=== PATIENT | male | born 1980 | race Two or more races ===

== ENCOUNTER 2024-06-09 16:19 | Emergency (ER) | payer OTHER ==
[~2024-06-09] VITALS: Ht 165.1 cm; Wt 83.9 kg
[2024-06-09] MEDS ORDERED: GLUMETZA500 MG (16:56)
[2024-06-09] MEDS ORDERED: OxyCODONE HCL/APAP UD (PERCOCET) PO ONE (17:00)
[2024-06-09] MEDS ORDERED: DICLOFENAC SODI50 MG PO (18:43)
[2024-06-09] MEDS ORDERED: KETOROLAC TROMETHAMINE 60 MG VIAL IM ONE (19:00)
== END 2024-06-09 19:16 ==
LOC: ER 16:19
DX: S50.01XA Contusion of right elbow, initial encounter (principal); I10 Essential (primary) hypertension; W01.0XXA Fall on same level from slipping, tripping and stumbling without subsequent striking against object, initial encounter; Y93.02 Activity, running; Y92.59 Other trade areas as the place of occurrence of the external cause; E11.9 Type 2 diabetes mellitus without complications; Z79.84 Long term (current) use of oral hypoglycemic drugs